=== PATIENT | female | born 1970 | race Two or more races ===

== ENCOUNTER → 2023-09-27 09:34 | Outpatient (CLI) | payer OTHER | END | disposition home or self-care (01) | LOC: NUCLEAR 09:34 | PROVIDERS: ATTEND Internal Medicine Geriatric Medicine | DX: I87.2 Venous insufficiency (chronic) (peripheral) (principal); I73.9 Peripheral vascular disease, unspecified ==

== ENCOUNTER 2024-10-02 07:05 | Day surgery (SDC) | payer OTHER ==
[2024-09-30 12:30] LABS: URINE APPEARANCE Clear; URINE BILIRRUBIN Negative (NEGATIVE); URINE BLOOD Negative; URINE COLOR Yellow; URINE GLUCOSE Negative (NEGATIVE); URINE KETONE Negative (NEGATIVE); URINE LEUKOCYTE Negative; URINE NITRATE Negative; URINE PROTEIN Negative (NEGATIVE); URINE UROBILINOGEN 0.2 E.U./dl
[2024-09-30 12:34] LABS: URINE BACTERIA 27.5 uL (0.0-1933); URINE EPITHELIAL CELLS 8.4 uL (0.0-38.8)
[2024-09-30 12:41] LABS: URINE CAST 0.87 uL (0.0-1.40); URINE RBC 1.1 uL (0.0-20.8); URINE WBC 1.6 uL (0.0-23.2)
[2024-09-30 12:46] LABS: INR 1.0
[~2024-10-02 07:05] MED LIST: ATACAND HCT 161 EACH PO; CHOLESTYRAMINE R5 GM; FOLIC ACID0.8 M1; INTESTINEX680 M1 PO; METFORMIN HCL500 M3 PO; PEPCID AC20 MG PO; PROTONIX40 MG PO; VITAMIN D
[2024-10-02] MEDS ORDERED: POVIDONE-IODINE 118 ML BOTT TOP ONE (11:45)
[2024-10-02] MEDS ORDERED: MORPHINE SULFATE 4 MG/ML VIAL IV PRN (12:45)
[2024-10-02] MEDS ORDERED: PROMETHAZINE HCL 50 MG/ML AMPUL IM ONE (12:45)
== END 2024-10-02 17:30 | disposition home or self-care (01) ==
LOC: CIR.AMB 07:05
PROVIDERS: ATTEND Obstetrics & Gynecology
DX: N84.0 Polyp of corpus uteri (principal); Z88.6 Allergy status to analgesic agent